=== PATIENT | male | born 1945 | race Caucasian/White ===

== ENCOUNTER → 2020-10-25 | Outpatient (CLI) | payer MEDICARE ==
[~2020-10-25] MED LIST: KEFLEX CAP 500500 MG PO; NORCO 5-325 TA1 EACH PO; PERCOCET 10-321 EACH PO
== END ==
LOC: EMI 08:00
DX: M79.641 Pain in right hand (principal); R60.0 Localized edema
CPT/HCPCS: 73218; 73220

== ENCOUNTER → 2020-10-27 | Outpatient (CLI) | payer MEDICARE | LOC: KOH-I 14:58 | DX: M25.531 Pain in right wrist (principal); M25.431 Effusion, right wrist | CPT/HCPCS: 73221 ==

== ENCOUNTER → 2020-12-25 | Outpatient (CLI) | payer MEDICARE | LOC: KOH-I 09:37 | DX: M75.102 Unspecified rotator cuff tear or rupture of left shoulder, not specified as traumatic (principal) | CPT/HCPCS: 73221 ==

== ENCOUNTER → 2021-02-12 | Outpatient (CLI) | payer MEDICARE ==
[~2021-02-12] MED LIST changes: +HYDROCODON-ACE1 EAC2 PO; +OMEPRAZOLE20 M1 PO
[2021-02-12 10:13] LABS: HEMOGLOBIN 16.3 gm/dl (14.0-17.5); RED BLOOD COUNT 5.12 M/UL (4.20-5.50); WHITE BLOOD COUNT 6.5 K/UL (4.5-11.0)
[2021-02-12 10:29] LABS: BUN/CREATININE RATIO 14 (0-10)
== END ==
LOC: OPSV2 09:00
PROVIDERS: Orthopaedic Surgery
DX: Z01.818 Encounter for other preprocedural examination (principal); G56.01 Carpal tunnel syndrome, right upper limb
CPT/HCPCS: 80048; 85025; 93005

== ENCOUNTER → 2021-02-15 | Day surgery (SDC) | payer MEDICARE ==
[~2021-02-15] VITALS: Ht 180.3 cm; Wt 75.7 kg
[~2021-02-15] MED LIST changes: +HYDROCODON-ACE1 EAC6 PO
== END | disposition home or self-care (01) ==
LOC: OR 06:42
DX: G56.01 Carpal tunnel syndrome, right upper limb (principal); M75.112 Incomplete rotator cuff tear or rupture of left shoulder, not specified as traumatic; I10 Essential (primary) hypertension; Z20.822 Contact with and (suspected) exposure to COVID-19; Z90.49 Acquired absence of other specified parts of digestive tract
CPT/HCPCS: J1100; J1885; J2001; J2405; J2704; J7120

== ENCOUNTER → 2021-06-07 | Outpatient (CLI) | payer MEDICARE ==
[~2021-06-07] MED LIST changes: +ADVIL200 MG PO; +ASPIRIN EC81 MG PO; +BACTROBAN OINT22 GM; +CYCLOBENZAPRINE10 MG PO; +ENDOCET 7.5-321 EACH PO; -OMEPRAZOLE20 M1 PO; +OMEPRAZOLE40 MG PO; +TYLENOL EXTRA500 MG PO; +ZOFRAN 4 MG TAB4 MG PO
[2021-06-07 08:50] LABS: HEMOGLOBIN 16.8 gm/dl (14.0-17.5); RED BLOOD COUNT 5.32 M/UL (4.20-5.50); WHITE BLOOD COUNT 5.1 K/UL (4.5-11.0)
[2021-06-07 09:11] LABS: BUN/CREATININE RATIO 14 (0-10)
== END ==
LOC: OPSV2 07:55 → EDSTATUS 08:00 → OPSV2 08:00
PROVIDERS: Orthopaedic Surgery
DX: Z01.818 Encounter for other preprocedural examination (principal); M75.102 Unspecified rotator cuff tear or rupture of left shoulder, not specified as traumatic
CPT/HCPCS: 80048; 85027; 93005

== ENCOUNTER → 2021-06-12 | Day surgery (SDC) | payer MEDICARE ==
[~2021-06-12] VITALS: Ht 180.3 cm; Wt 77.6 kg
== END | disposition home or self-care (01) ==
LOC: OR 06:47
DX: M12.812 Other specific arthropathies, not elsewhere classified, left shoulder (principal); M75.122 Complete rotator cuff tear or rupture of left shoulder, not specified as traumatic; G89.18 Other acute postprocedural pain; I10 Essential (primary) hypertension; F17.210 Nicotine dependence, cigarettes, uncomplicated; Z79.899 Other long term (current) drug therapy; Z20.822 Contact with and (suspected) exposure to COVID-19
CPT/HCPCS: 73020; 97161; 97166; C1713; C1776; J0690; J1100; J2001; J2250; J2405; J2704; J2710; J2795; J3010; J7120

== ENCOUNTER → 2021-12-10 | Outpatient (CLI) | payer MEDICARE | LOC: EXRD 08:05 | DX: Z13.6 Encounter for screening for cardiovascular disorders (principal); R01.1 Cardiac murmur, unspecified; R09.89 Other specified symptoms and signs involving the circulatory and respiratory systems; M25.512 Pain in left shoulder | CPT/HCPCS: 73202; 76706; 93306; 93880; Q9967 ==